=== PATIENT | male | born 1990 | race Caucasian/White ===

== ENCOUNTER 2020-10-02 18:47 | Emergency (ER) | payer OTHER ==
[2020-10-02 18:54] VITALS: BP 136/76; PULSE 104; RESP 18; TEMP 97.8
[2020-10-02] MEDS ORDERED: ACETAMINOPHEN TAB 500 MG TAB PO STA (18:57)
--- NOTE | 2020-10-02 19:23 | XR ---
EXAMINATION TYPE: XR chest 1V portable DATE OF EXAM: 10/02/2020 COMPARISON: NONE HISTORY: Short of breath. TECHNIQUE: Single view FINDINGS: Heart and mediastinum are normal. Lungs are clear. Diaphragm is normal. Bony thorax appears normal. IMPRESSION: Normal chest.
[2020-10-02 19:24] LABS: Basophils # (A) 0.1 k/uL (0-0.2); Basophils % (A) 2 %; Eosinophils # (A) 0.2 k/uL (0-0.7); Eosinophils % (A) 3 %; HCT 47.6 % (39.0-53.0); Lymphocytes # (A) 1.3 k/uL (1.0-4.8); Lymphocytes % (A) 19 %; MCH 29.2 pg (25.0-35.0); MCHC 33.6 g/dL (31.0-37.0); MCV 86.6 fL (80.0-100.0); Mean Platelet Volume 8.3; Monocytes # (A) 0.5 k/uL (0-1.0); Monocytes % (A) 8 %; Neutrophils # (A) 4.5 k/uL (1.3-7.7); Neutrophils % (A) 66 %; Platelet Count 197 k/uL (150-450); RBC 5.49 m/uL (4.30-5.90); WBC 6.8 k/uL (3.8-10.6)
--- NOTE | 2020-10-02 19:37 | ED ---
General Adult HPI - General Chief complaint: Chest Pain Stated complaint: +Covid, Chest Pain Time Seen by Provider: 10/02/20 18:57 Source: patient, RN notes reviewed, old records reviewed Mode of arrival: ambulatory Limitations: no limitations - History of Present Illness Initial comments: 30-year-old male patient to ED. Patient tested positive for coronavirus around a week ago. He has been having consistent symptoms of some anterior chest wall pressure and he reports that he is having some shortness of breath after he exerts himself. This has been ongoing for 5 days. He reports that his resting heart rate has been slightly elevated. Denies any other acute complaints. Denies any prior medical history. Systemic: Pt denies fatigue, fever/chills, rash. Pt denies weakness, night sweats, weight loss. Neuro: Pt denies headache, visual disturbances, syncope or pre-syncope. HEENT: Pt denies ocular discharge or irritation, otalgia, rhinorrhea, pharyngitis or notable lymphadenopathy. Cardiopulmonary: Pt denies heart palpitations, dyspnea on exertion. Abdominal/GI: Pt denies abdominal pain, n/v/d. : Pt denies dysuria, burning w/ urination, frequency/urgency. Denies new onset urinary or bowel incontinence. MSK: Pt denies myalgia, loss of strength or function in extremities. Neuro: Pt denies new onset weakness, paresthesias. - Related Data Allergies Allergy/AdvReac Type Severity Reaction Status Date / Time No Known Allergies Allergy Verified 10/02/20 18:50 Review of Systems ROS Statement: Those systems with pertinent positive or pertinent negative responses have been documented in the HPI. ROS Other: All systems not noted in ROS Statement are negative. Past Medical History Past Medical History: No Reported History History of Any Multi-Drug Resistant Organisms: None Reported Past Surgical History: No Surgical Hx Reported Past Psychological History: ADD/ADHD Smoking Status: Never smoker Past Alcohol Use History: Rare Past Drug Use History: None Reported General Exam - General Exam Comments Initial Comments: Constitutional: NAD, AOX3, Pt has pleasant affect. HEENT: NC/AT, trachea midline, neck supple, no lymphadenopathy. External ears appear normal, without discharge. Mucous membranes moist. Eyes PERRLA, EOM intact. There is no scleral icterus. No pallor noted. Cardiopulmonary: RRR, no murmurs, rubs or gallops, no JVD noted. Lungs CTAB in anterior and posterior waldron. No peripheral edema. Abdominal exam: Abdomen soft and non-distended. Abdomen non-tender to palpation in all 4 quadrants. Bowel sounds active in LLQ. No hepatosplenomegaly. No ecchymosis Neuro: CN II-XII grossly intact. No nuchal rigidity. No raccon eyes, no alejo sign, no hemotympanum. No cervical spinal tenderness. MSK: No posterior calf tenderness bilaterally, homans sign negative bilaterally. Posterior tibialis and radial pulse +2 bilaterally. Sensation intact in upper and lower extremities. Full active ROM in upper and lower extremities, 5/5 stregnth. Limitations: no limitations Course Vital Signs 10/02/20 18:51 Temperature 97.8 F Pulse Rate 104 H Respiratory 18 Rate Blood Pressure 136/76 O2 Sat by Pulse 100 Oximetry Medical Decision Making - Medical Decision Making 30-year-old male patient to ED for evaluation. Patient is currently on a positive approximately one week. Reports even having some chest pressure and some shortness of breath after exerting himself. Denies any shortness breath at rest. Denies any other complaints. Vital signs are stable, afebrile. Physical exam is negative for acute pathology. Laboratory investigations are unremarkable. EKG is nonischemic. CT angiography is negative. Patient will discharge the patient follow-up and return precautions. Case discussed with Dr. Kerr. - Lab Data Result diagrams: 10/02/20 19:10/02/20 19: Lab Results 10/02/20 10/02/20 10/02/20 Range/Units 19:01 19:01 19:01 WBC 6.8 (3.8-10.6) k/uL RBC 5.49 (4.30-5.90) m/uL Hgb 16.0 (13.0-17.5) gm/dL Hct 47.6 (39.0-53.0) % MCV 86.6 (80.0-100.0) fL MCH 29.2 (25.0-35.0) pg MCHC 33.6 (31.0-37.0) g/dL RDW 12.0 (11.5-15.5) % Plt Count 197 (150-450) k/uL MPV 8.3 Neutrophils % 66 % Lymphocytes % 19 % Monocytes % 8 % Eosinophils % 3 % Basophils % 2 % Neutrophils # 4.5 (1.3-7.7) k/uL Lymphocytes # 1.3 (1.0-4.8) k/uL Monocytes # 0.5 (0-1.0) k/uL Eosinophils # 0.2 (0-0.7) k/uL Basophils # 0.1 (0-0.2) k/uL PT 9.9 (9.0-12.0) sec INR 0.9 (<1.2) APTT 24.4 (22.0-30.0) sec D-Dimer 0.59 (<0.60) mg/L FEU Sodium 139 (137-145) mmol/L Potassium 4.0 (3.5-5.1) mmol/L Chloride 103 (98-107) mmol/L Carbon Dioxide 28 (22-30) mmol/L Anion Gap 8 mmol/L BUN 18 (9-20) mg/dL Creatinine 1.01 (0.66-1.25) mg/dL Est GFR (CKD-EPI)AfAm >90 (>60 ml/min/1.73 sqM) Est GFR (CKD-EPI)NonAf >90 (>60 ml/min/1.73 sqM) Glucose 87 (74-99) mg/dL Plasma Lactic Acid Anam (0.7-2.0) mmol/L Calcium 9.5 (8.4-10.2) mg/dL Magnesium 2.0 (1.6-2.3) mg/dL Total Bilirubin 0.4 (0.2-1.3) mg/dL AST 34 (17-59) U/L ALT 46 (4-49) U/L Alkaline Phosphatase 84 (38-126) U/L Lactate Dehydrogenase 545 (313-618) U/L Troponin I (0.000-0.034) ng/mL C-Reactive Protein 5.3 (<10.0) mg/L Total Protein 7.5 (6.3-8.2) g/dL Albumin 4.8 (3.5-5.0) g/dL 10/02/20 10/02/20 Range/Units 19:01 19:01 WBC (3.8-10.6) k/uL RBC (4.30-5.90) m/uL Hgb (13.0-17.5) gm/dL Hct (39.0-53.0) % MCV (80.0-100.0) fL MCH (25.0-35.0) pg MCHC (31.0-37.0) g/dL RDW (11.5-15.5) % Plt Count (150-450) k/uL MPV Neutrophils % % Lymphocytes % % Monocytes % % Eosinophils % % Basophils % % Neutrophils # (1.3-7.7) k/uL Lymphocytes # (1.0-4.8) k/uL Monocytes # (0-1.0) k/uL Eosinophils # (0-0.7) k/uL Basophils # (0-0.2) k/uL PT (9.0-12.0) sec INR (<1.2) APTT (22.0-30.0) sec D-Dimer (<0.60) mg/L FEU Sodium (137-145) mmol/L Potassium (3.5-5.1) mmol/L Chloride (98-107) mmol/L Carbon Dioxide (22-30) mmol/L Anion Gap mmol/L BUN (9-20) mg/dL Creatinine (0.66-1.25) mg/dL Est GFR (CKD-EPI)AfAm (>60 ml/min/1.73 sqM) Est GFR (CKD-EPI)NonAf (>60 ml/min/1.73 sqM) Glucose (74-99) mg/dL Plasma Lactic Acid Anam 1.2 (0.7-2.0) mmol/L Calcium (8.4-10.2) mg/dL Magnesium (1.6-2.3) mg/dL Total Bilirubin (0.2-1.3) mg/dL AST (17-59) U/L ALT (4-49) U/L Alkaline Phosphatase (38-126) U/L Lactate Dehydrogenase (313-618) U/L Troponin I <0.012 (0.000-0.034) ng/mL C-Reactive Protein (<10.0) mg/L Total Protein (6.3-8.2) g/dL Albumin (3.5-5.0) g/dL - EKG Data -: EKG Interpreted by Me (and Dr. Kerr ) EKG Comments: Ventricular rate 95, ME interval 132, QRS 68, QT/QTC 326/409. Normal sinus rhythm, normal EKG, no concern for acute ischemia. Disposition Clinical Impression: COVID-19 virus infection Disposition: HOME SELF-CARE Condition: Stable Instructions (If sedation given, give patient instructions): Upper Respiratory Infection (ED), Chest Wall Pain (ED) Additional Instructions: Follow up with PCP tomorrow. recommends starting a multivitamin which contained zinc and vitamin C. Return to ER if any difficulties in breathing or any other concerning symptoms. Is patient prescribed a controlled substance at d/c from ED?: No Referrals: Jorden Whiteside MD [Primary Care Provider] - 1-2 days
[2020-10-02 19:44] LABS: ALT 46 U/L (4-49); AST 34 U/L (17-59); African American GFR (CKD) >90 (>60 ml/min/1.73 sqM); Albumin 4.8 g/dL (3.5-5.0); Alkaline Phosphatase 84 U/L (38-126); Anion Gap 8 mmol/L; Blood Urea Nitrogen 18 mg/dL (9-20); C Reactive Protein 5.3 mg/L (<10.0); Calcium 9.5 mg/dL (8.4-10.2); Carbon Dioxide 28 mmol/L (22-30); Chloride 103 mmol/L (98-107); Glucose 87 mg/dL (74-99); LDH 545 U/L (313-618); Non-African American GFR(CKD) >90 (>60 ml/min/1.73 sqM); Sodium 139 mmol/L (137-145); Total Bilirubin 0.4 mg/dL (0.2-1.3); Total Protein 7.5 g/dL (6.3-8.2)
[2020-10-02 19:46] LABS: D-Dimer 0.59 mg/L FEU (<0.60); INR 0.9 (<1.2); Partial Thromboplastin Time 24.4 sec (22.0-30.0); Prothrombin Time 9.9 sec (9.0-12.0)
[2020-10-02] MEDS ORDERED: SODIUM CHLORIDE 0.9% 500 ML 500 ML IV ONE (19:57)
--- NOTE | 2020-10-02 20:40 | CT ---
EXAMINATION TYPE: CT chest angio for PE DATE OF EXAM: 10/02/2020 COMPARISON: None HISTORY: SOB, Covid + CT DLP: 390.4 mGycm Automated exposure control for dose reduction was used. CONTRAST: Performed with IV Contrast, patient injected with 80 mL of Isovue 370. There are 3-D post processed images. The lungs are clear of infiltrate. There is no evidence of a pulmonary mass. There is no pleural effu angeli. There is no mediastinal adenopathy. There are no hilar masses. Heart size is normal. There is no vadim cardial effusion. Thoracic aorta is intact. There is no aneurysm or dissection. There is normal contrast opacification of the pulmonary arteries. There are no filling defects. Upper abdominal soft tissues are intact. The bony thorax is intact. Sternum is intact. Upper abdominal soft tissues are intact. IMPRESSION: Normal exam. No evidence of pulmonary embolism.
[2020-10-02 22:57] LABS: Ferritin 172.6 ng/mL (22.0-322.0)
== END 2020-10-02 21:27 | disposition home or self-care (01) ==
LOC: EC 18:47
DX: U07.1 COVID-19 (principal)
CPT/HCPCS: 36415; 93005; 85379; 80053; 82728; 83605; 83615; 83735; 84484; 85025; 85610; 85730; 86140; 84145; 71045; 71275; 99285; 96360; Q9967

== ENCOUNTER 2023-12-05 09:03 | Emergency (ER) | payer OTHER ==
[2023-12-05] MEDS ORDERED: ACETAMINOPHEN TAB 500 MG TAB PO STA (09:51)
--- NOTE | 2023-12-05 09:52 | ED ---
General Adult HPI - General Chief complaint: Upper Respiratory Infection Stated complaint: SOB,CHEST PAIN,COUGH Time Seen by Provider: 12/05/23 09:17 Source: patient, RN notes reviewed Mode of arrival: ambulatory Limitations: no limitations - History of Present Illness Initial comments: Patient is a 33-year-old with no significant past medical history, presented to the emergency room today with a chief complaint of influenza B. Patient does admit that he started to feel sick approximate 3 days ago. He states he just happened to have a doctor's appointment that day and was tested and was positive for influenza B. Patient states he had cough, congestion. He states that his had some similar symptoms at home but recently got admitted because she had nausea vomiting and was found to have pneumonia. He states that he was feeling worse this morning so he thought he should come in to be evaluated. He states still having cough, congestion with sputum production has been green in color. Patient denies feeling short of breath. He denies any nausea or vomiting. Denies chest pain. Denies any other complaints or symptoms currently. - Related Data Allergies Allergy/AdvReac Type Severity Reaction Status Date / Time No Known Allergies Allergy Verified 10/02/20 18:50 Review of Systems ROS Statement: Those systems with pertinent positive or pertinent negative responses have been documented in the HPI. ROS Other: All systems not noted in ROS Statement are negative. Past Medical History Past Medical History: No Reported History History of Any Multi-Drug Resistant Organisms: None Reported Past Surgical History: No Surgical Hx Reported Past Psychological History: ADD/ADHD Smoking Status: Never smoker Past Alcohol Use History: Rare Past Drug Use History: None Reported General Exam - General Exam Comments Initial Comments: General: The patient is awake and alert, in no distress, and does not appear acutely ill. Eye: Extra-ocular movements are intact. There is normal conjunctiva bilaterally. No signs of icterus. Ears, nose, mouth and throat: There are moist mucous membranes and no oral lesions. Neck: The neck is supple, there is no tenderness or JVD. Cardiovascular: There is a regular rate and rhythm. No murmur, rub or gallop is appreciated. Respiratory: Lungs are clear to auscultation, respirations are non-labored, breath sounds are equal. No wheezes, stridor, rales, or rhonchi. Musculoskeletal: Normal ROM, no tenderness. . Neurological: A&O x 3. CN II-XII intact, There are no obvious motor or sensory deficits. Coordination appears grossly intact. Speech is normal. Skin: Skin is warm and dry and no rashes or lesions are noted. Psychiatric: Cooperative, appropriate mood & affect, normal judgment. Limitations: no limitations Course Vital Signs 12/05/23 12/05/23 12/05/23 09:06 10:11 11:01 Temperature 98.1 F 98.1 F 98.8 F Pulse Rate 130 H 120 H 114 H Respiratory 20 18 18 Rate Blood Pressure 143/74 132/91 143/77 O2 Sat by Pulse 99 97 98 Oximetry 12/05/23 12:05 Temperature Pulse Rate 96 Respiratory 18 Rate Blood Pressure 137/84 O2 Sat by Pulse 98 Oximetry Medical Decision Making - Medical Decision Making History was obtained from patient/Nurse/ Initial assessment and chief complaint: Influenza B, cough, congestion, fever, body aches Chronic conditions affecting care: None Social determinants affecting care: None Differential diagnosis included, but not limited to: Influenza B, COVID, pneumonia Any imaging that may have been performed was also reviewed. I did an independent interpretation of the patient's imaging. My interpretation of chest x-ray reviewed shows no evidence of pneumonia. No other acute abnormality. 33-year-old male presented to the emergency room today with a chief complaint of cough, congestion. He does admit that he had a family doctor appointment was tested for influenza and was positive for influenza B. Patient states that symptoms seem to be increasing with increased cough congestion was concerned because his had similar symptoms and was actually admitted to the hospital for pneumonia. Patient was tachycardic at triage. He states he did take Motrin prior to arrival. Was given Tylenol here in the emergency room. Patient did have a chest x-ray which was negative for any acute abnormality. He was given a liter bolus and heart rate has improved. He is resting comfortably. Nontoxic- appearing. Feels comfortable being discharged home. Will be given a work note. Advise close follow-up or return here to the emergency room if any symptoms increase or worsen. States understanding and is agreement this plan. Disposition Clinical Impression: Influenza Disposition: HOME SELF-CARE Condition: Good Instructions (If sedation given, give patient instructions): Influenza (ED) Is patient prescribed a controlled substance at d/c from ED?: No Referrals: Jorden Whiteside MD [Primary Care Provider] - 1-2 days Time of Disposition: 12:19
--- NOTE | 2023-12-05 10:06 | XR ---
EXAMINATION TYPE: XR chest 2V DATE OF EXAM: 12/05/2023 COMPARISON: 10/02/2020 INDICATION: Cough worsening, short of breath TECHNIQUE: Frontal and lateral views of the chest are obtained. FINDINGS: The heart size is normal. The pulmonary vasculature is normal. The lungs are clear. IMPRESSION: 1. No acute pulmonary process.
[2023-12-05 10:41] VITALS: RESP 18
[2023-12-05] MEDS ORDERED: SODIUM CHLORIDE 0.9% 1,000 ML IV STA (10:58)
[2023-12-05 11:17] VITALS: TEMP 98.8
[2023-12-05 12:27] VITALS: BP 137/84; PULSE 96
== END 2023-12-05 12:45 | disposition home or self-care (01) ==
LOC: EC 09:03
DX: J11.1 Influenza due to unidentified influenza virus with other respiratory manifestations (principal); Z86.59 Personal history of other mental and behavioral disorders
CPT/HCPCS: 71046; 96360; 99285